=== PATIENT | female | born 1965 | race Caucasian/White ===

== ENCOUNTER 2022-04-22 16:54 | Emergency (ER) | payer MEDICAID, SELFPAY ==
[2022-04-22 20:30] VITALS: BP 165/77; PULSE 77; RESP 18; TEMP 36.6; O2SAT 98; BMI 46.8
--- NOTE | 2022-04-22 23:45 | ED.BACK ---
HPI - Back Pain/Injury General Chief Complaint: Back Pain/Injury Stated Complaint: back pain Time Seen by Provider: 04/22/22 23:45 Source: patient Mode of arrival: ambulatory Limitations: no limitations History of Present Illness HPI Narrative: This is a 56-year-old female no significant medical history presenting to the emergency department with complaints of lower back pain x2 days worsening. Patient tells me initially she started experiencing this back pain after she got pulled while walking a dog she tells me she feels like her back was strained, she immediately started experiencing the pain to her lower back and at times it radiates down her left leg just above the knee. He tells me this is never happened to her before. She rates the pain as severe, 10/10, intermittent in nature, worsened by certain movements. Denies fall, no head strike. Also denies fevers, chills, chest pain, shortness of breath, numbness, urinary/bowel incontinence/retention, weakness, loss of sensation to lower extremities, difficulties with ambulation MD elicited complaint: back pain Pertinent past history: other (Pulled by a dog) Onset (ago): day(s) (2) Timing: intermittent Severity: severe Pain scale (0-10): 10 Similar Symptoms Previously: No Quality: sharp Location: lumbar spine Radiation: left upper leg Exacerbating factors: movement Relieving factors: immobilization Context: other (getting pulled by a dog ) Work related injury: No Related Data Previous Rx's Medication Instructions Recorded acetaminophen 325 mg tablet 650 mg PO Q6H PRN pain #20 tabs 04/23/22 (Tylenol) cyclobenzaprine 10 mg tablet 10 mg PO BEDTIME PRN muscle spasm 04/23/22 #7 tabs lidocaine 5 % topical patch 1 patch topical DAILY PRN pain #15 04/23/22 ea Allergies Allergy/AdvReac Type Severity Reaction Status Date / Time No Known Allergies Allergy Unverified 06/12/20 15:21 [No Known Allergies*] Review of Systems Review of Systems: Constitutional : No Weight loss, No Fever, No Chills, No Fatigue, No Malaise ENT/Mouth : No sore throat, No Rhinorrhea Eyes: No Eye Pain, No Swelling, No Redness Cardiovascular : No Chest Pain, No SOB, No Dyspnea on Exertion, No Orthopnea, No Edema, No Palpitations Respiratory : No Cough, No Sputum, No Wheezing Gastrointestinal : No Nausea, No Vomiting, No Diarrhea, No Constipation, No abdominal Pain, No Hematochezia, No Melena Genitourinary : No Dysuria, No Urinary Frequency, No Hematuria, Musculoskeletal : + joint pain, No Myalgias, No Joint Swelling Skin : No Skin Lesions, No rash Neuro : No Weakness, No Numbness, No Dizziness, No Headache All other systems reviewed and are negative Yes all other systems are reviewed and are negative [facility] Past Medical History Attestation statement: The following information was validated with the patient. Source: old records reviewed and nursing notes reviewed Physical Exam Vital Signs: Vital Signs: Last Vital Signs Temp 97.8 F 04/22/22 20:30 Pulse 77 04/22/22 20:30 Resp 18 04/22/22 20:30 BP 165/77 H 04/22/22 20:30 Pulse Ox 98 04/22/22 20:30 O2 Del Method 04/22/22 20:30 BMI result Body Mass Index 46.8 VSS Appearance: Alert.? Oriented X3.? No acute distress.? Head: Normocephalic, atraumatic, no step-offs or deformities Eyes: Pupils equal, round and reactive to light.? CVS: Normal heart rate and rhythm.? Pulses normal.? Respiratory: No respiratory distress.? Breath sounds normal.? Abdomen: Soft and nontender.? Skin: Skin warm and dry.? Normal skin color.? Normal skin turgor.? Extremities: No lower extremity edema.? No calf ttp. 5/5 strength to bilateral upper and lower extremities. 2+ patellar reflexes equal bilateral. Back: No midline tenderness, no C-spine tenderness, full range of motion, no CVA tenderness bilaterally + pain with forward flexion and extension of back Neuro: Oriented X 3.? No motor deficit.? No sensory deficit. CN 2-12 intact . Ambulating with steady gait. No saddle paresthesias. Course Reevaluation(s) Reevaluation #1: Patient will be given morphine at this time for pain, Lidoderm patch. She will be discharged home with Tylenol, cyclobenzaprine and Lidoderm patches for likely sciatica. Advised to return with new or worsening symptoms, educated her on worrisome signs and symptoms and when to return. Time: 00:07 MDM - Back Pain/Injury MDM Narrative Medical decision making narrative: [id number] 56-year-old female presents with lower back pain status post getting a pulled by her dog while walking it, pain intermittently radiates down left lower extremity just above the knee. Physical examination benign. No pain w/ palpation. However pain with forward flexion and extension of back. Likely sciatic or lumbar strain. Unlikely cauda equina or epidural abscess. Low suspicion for fractures or dislocation. Plan at this time is to give patient Toradol and Lidoderm patches. Medical Records Attestation: I reviewed the patient's medical records. Lab Data Attestation: I reviewed the patient's lab results. Critical Care Time Critical Care Time Critical Care Time: No Discharge Plan Discharge Clinical Impression: Sciatica Patient Disposition: Home, Self-Care Instructions: Sciatica (ED) Additional Instructions: Take your medications as prescribed. If you were prescribed antibiotics today, it is important that you take your medication to their entirety, do not skip any doses, do not finish them early. Follow-up with your primary care provider this week. Return to the emergency department with new or worsening symptoms. Such as fevers, chills, chest pain, shortness of breath, nausea, vomiting, dizziness, headache, vision changes, lethargy In case of emergency call 911 Cyclobenzaprine as a muscle relaxer, can make you tired, please do not drive or operate machinery while taking this. Prescriptions: New cyclobenzaprine 10 mg tablet 10 mg PO BEDTIME PRN (Reason: muscle spasm) Qty: 7 0RF lidocaine 5 % adhesive patch,medicated 1 patch topical DAILY PRN (Reason: pain) Qty: 15 0RF Rx Instructions: leave on most painful area for up to 12 hrs acetaminophen [Tylenol] 325 mg tablet 650 mg PO Q6H PRN (Reason: pain) Qty: 20 0RF Referrals: Physician,None [Primary Care Provider] - 2 days Stand Alone Forms: Work/School Release
[2022-04-23] MEDS: Lidocaine 4 % Patch ADH..PATCH 1 PATCH TRANSDERMA (01:01)
[2022-04-23] MEDS: Morphine Sulfate Immed Release 15 MG TABLET PO (01:01)
== END 2022-04-23 01:08 | disposition home or self-care (01) ==
PROVIDERS: Emergency Provider Internal Medicine
DX: M54.42 Lumbago with sciatica, left side (principal)
CPT/HCPCS: 99283

== ENCOUNTER 2023-07-28 08:26 | Outpatient (REF) | payer MEDICAID, SELFPAY ==
[2023-07-28 12:12] LABS: Anion Gap 12 (12-20); Blood Urea Nitrogen 15 mg/dL (9-16); Calcium 9.8 mg/dL (8.4-10.2); Carbon Dioxide 29 mmol/L (22-29); Chloride 99 mmol/L (96-108); Cholesterol 196 mg/dL (<200); Estimated Glomerular Filt Rate > 60; Glucose Random 189 mg/dL (60-115); HDL Cholesterol 40 mg/dL (>40); LDL Cholesterol Calculated 111 mg/dL (<100); Potassium 3.3 mmol/L (3.3-5.1); Sodium 137 mmol/L (135-145); Triglycerides 228 mg/dL (<150)
== END 2023-07-28 08:27 | disposition home or self-care (01) ==
LOC: HO.HHCL 08:26
PROVIDERS: Visit Provider Family Medicine
DX: I10 Essential (primary) hypertension (principal)
CPT/HCPCS: 36415; 80048; 80061

== ENCOUNTER 2023-08-08 08:17 | Outpatient (REF) | payer MEDICAID, SELFPAY ==
[2023-08-08 11:34] LABS: Estimated Average Glucose 206 mg/dL; Hemoglobin A1c % 8.8 % (<6.0)
== END 2023-08-08 08:18 | disposition home or self-care (01) ==
LOC: HO.HHCL 08:17
PROVIDERS: Visit Provider Family Medicine
DX: R73.09 Other abnormal glucose (principal)
CPT/HCPCS: 36415; 83036

== ENCOUNTER 2023-09-02 10:06 | Outpatient (REF) | payer MEDICAID, SELFPAY ==
[2023-09-02 13:01] LABS: Alanine Aminotransferase 25 U/L (0-31); Albumin Level 4.4 g/dL (3.5-5.0); Alkaline Phosphatase 77 U/L (39-117); Anion Gap 13 (12-20); Aspartate Amino Transferase 21 U/L (5-31); Bilirubin Total 0.8 mg/dL (0.0-1.0); Blood Urea Nitrogen 15 mg/dL (9-16); Calcium 9.7 mg/dL (8.4-10.2); Carbon Dioxide 28 mmol/L (22-29); Chloride 100 mmol/L (96-108); Estimated Glomerular Filt Rate 56; Glucose Random 245 mg/dL (60-115); Potassium 3.3 mmol/L (3.3-5.1); Sodium 138 mmol/L (135-145); Total Protein 8.5 g/dL (6.5-8.0)
[2023-09-03 04:45] LABS: HBS Num1 0.44 mIU/mL (0-7.99); ~HepC Num1 0.13 S/CO (0.00-0.79); ~Hepatitis B Surface Antibody NONREACTIVE (Nonreactive); ~Hepatitis C Antibody Nonreactive (Nonreactive)
[2023-09-05 19:09] LABS: HIV RNA PCR Qn Copies Not Detected Copies/mL; HIV RNA PCR Qn Log Copies Not Detected Log cps/mL
[2023-09-06 06:34] LABS: RPR Rapid Plasma Reagin NON-REACTIVE (NON-REACTIVE)
== END 2023-09-02 10:07 | disposition home or self-care (01) ==
LOC: HO.HHCL 10:06
PROVIDERS: Visit Provider Nurse Practitioner Family
DX: Z00.00 Encounter for general adult medical examination without abnormal findings (principal); Z11.4 Encounter for screening for human immunodeficiency virus [HIV]; E11.9 Type 2 diabetes mellitus without complications; E78.2 Mixed hyperlipidemia
CPT/HCPCS: 36415; 80053; 86592; 86706; 86803; 87536; 87900

== ENCOUNTER 2023-10-19 09:03 | Outpatient (REF) | payer MEDICAID, SELFPAY ==
--- NOTE | ~2023-10-19 | MM_ITS ---
EXAMINATION: MM SCREENING DIGITAL BREAST TOMOSYNTHESIS, BILATERAL CLINICAL INFORMATION: Screening. Asymptomatic. COMPARISON: Mammography: There are no prior mammograms for comparison for at least the last 14 years. This study will function as a new baseline examination. TECHNIQUE: Digital breast tomosynthesis is performed in both the craniocaudal and mediolateral oblique views along with computer-aided detection (CAD). Synthesized 2D images are generated from the tomosynthesis. FINDINGS: The breasts are almost entirely fatty (ACR BI-RADS breast composition Category a). There are no significant masses, abnormal calcifications, or other abnormalities. MM/MM tomosynthesis screening BI IMPRESSION: No mammographic evidence of malignancy. ASSESSMENT: BI-RADS BI-RADS 1 - Negative RECOMMENDATION: Routine annual mammography screening. 1 year F/U This examination should not preclude the clinical evaluation of a suspicious palpable abnormality. This patient's information was entered into a reminder system with a target due date for their next mammogram.
== END 2023-10-19 09:04 | disposition home or self-care (01) ==
LOC: HO.MAMMO 09:03
PROVIDERS: PCP Nurse Practitioner Family; Visit Provider Nurse Practitioner Family
DX: Z12.31 Encounter for screening mammogram for malignant neoplasm of breast (principal)
CPT/HCPCS: 77063; 77067

== ENCOUNTER → 2023-10-19 09:15 | Outpatient (BNV) | payer MEDICAID, SELFPAY | PROVIDERS: PCP Nurse Practitioner Family; Visit Provider Radiology Diagnostic Radiology | DX: Z12.31 Encounter for screening mammogram for malignant neoplasm of breast (principal) | CPT/HCPCS: 77063; 77067 ==

== ENCOUNTER 2023-12-07 | Outpatient (REF) | payer MEDICAID, SELFPAY ==
[2023-12-09 19:53] LABS: C. trachomatis RNA TMA NOT DETECTED (NOT DETECTED); N. gonorrhoeae RNA TMA NOT DETECTED (NOT DETECTED)
[2023-12-17 09:18] LABS: HPV mRNA E6/E7 rflx Not Detected (Not Detected)
== END 2023-12-07 00:01 | disposition home or self-care (01) ==
LOC: HO.HHCLNP
PROVIDERS: Visit Provider Nurse Practitioner Family
DX: Z12.4 Encounter for screening for malignant neoplasm of cervix (principal)
CPT/HCPCS: 36415; 81513; 87491; 87591; 87624; 88142

== ENCOUNTER 2024-01-05 13:09 | Outpatient (REF) | payer MEDICAID, SELFPAY ==
[2024-01-05 16:33] LABS: Alanine Aminotransferase 26 U/L (0-31); Albumin Level 4.4 g/dL (3.5-5.0); Alkaline Phosphatase 65 U/L (39-117); Aspartate Amino Transferase 20 U/L (5-31); Bilirubin Direct 0.4 mg/dL (0.0-0.5); Cholesterol 130 mg/dL (<200); HDL Cholesterol 41 mg/dL (>40); LDL Cholesterol Calculated 57 mg/dL (<100); Total Protein 8.2 g/dL (6.5-8.0); Triglycerides 164 mg/dL (<150)
[2024-01-05 17:27] LABS: Creatinine Urine 99.58 mg/dL; Microalbum/Creatinine Ratio Ur 31.1 ug/mg cr (<30)
== END 2024-01-05 13:10 | disposition home or self-care (01) ==
LOC: HO.CHCLDS 13:09
PROVIDERS: Visit Provider Nurse Practitioner Family
DX: I10 Essential (primary) hypertension (principal); E11.9 Type 2 diabetes mellitus without complications
CPT/HCPCS: 36415; 80061; 80076; 82043; 82570

== ENCOUNTER 2024-02-06 09:17 | Outpatient (AMB) | payer MEDICAID, SELFPAY ==
--- NOTE | 2024-02-06 09:23 | A.OFFVIS_ITS ---
Vital Signs 02/06/24 09:30 Height 5 ft 3 in Weight 222 lb BMI 39.3 BP 111/66 Blood Pressure Location Lt brachial Position Sitting Pulse 75 Intake Visit Reasons: Colonoscopy Screening Intake Note: Patient new consult for 1st pre colonoscopy screening. Patient cc: dizziness come and go. Denies any other GI issues. Clerical Coordinator Required: No Accompanied by: Self / Same As Patient Allergies No Known Allergies [No Known Allergies*] Allergy (Verified 02/06/24 09:22) Medication List - Last Reviewed 02/06/24 by Chela Apodaca amlodipine 10 mg PO DAILY aspirin 81 mg PO DAILY atorvastatin 10 mg PO DAILY bisacodyl (Dulcolax (bisacodyl)) 20 mg (4 x 5 mg) PO ONCE PRN 1 day chlorthalidone 25 mg PO DAILY dulaglutide (Trulicity) 0.75 mg subcut QWEEK insulin glargine (Lantus Solostar U-100 Insulin) 18 units subcut QPM lisinopril 10 mg PO DAILY metformin 500 mg PO DAILY polyethylene glycol 3350 (Miralax) 238 grams PO ONCE PRN 1 day HPI Comments Details: A 58 y/o diabetic female referred index screening colonoscopy Appetite is good, monitoring blood sugars they have been very good range- Trulicity , insulin and metformin Bowels normal Had been dizzy one day last week- after taking pills and not eating- no further sx No N/V/D- abdominal pain-fever or chills PFSH Surgical History Hx of carpal tunnel repair Hx of tubal ligation Social History Household Members: Family Alcohol intake: current Alcohol intake frequency: holidays/special occasions only Patient Tobacco Use Status: Never used Tobacco Use of substances other than those prescribed or required for medical reasons: No Review of Systems Const All systems reviewed & are unremarkable except as noted in HPI and below Eyes Denies blurry vision Card Denies chest pain and Denies dyspnea Resp Denies dyspnea GI Denies no additional complaints Physical Exam Vital Signs: Last Vital Signs Pulse 75 02/06/24 09:30 BP 111/66 02/06/24 09:30 BMI result Body Mass Index 39.3 Const General: cooperative, healthy appearing, comfortable and no acute distress Orientation/consciousness: patient oriented x3 Limitations: no limitations Eyes Sclerae: sclerae normal Resp Effort & Inspection: normal respiratory effort and able to speak in complete sentences Auscultation: clear to auscultation bilaterally Cardio Rate: regular rate Rhythm: regular rhythm Heart sounds: S1 normal heart sound present and S2 normal heart sound present GI Palpation (GI): Soft to palpation and nontender Auscultation: normal bowel sounds Skin General skin exam: no rashes or lesions noted Neuro General: patient oriented x3 Extrem General: Yes full ROM Psych Appearance: grossly normal and well kempt Mental Status: mental status grossly normal Speech and movement: Normal speech and movement present and Clear speech present Affect: normal affect Attitude: cooperative Thought process: Normal thought process present Thought content: Normal thought content present Insight: Good insight present (Psych) Judgement: Good judgement present (Psych) Assessment & Plan Assessment & Plan (1) Encounter for screening colonoscopy: Comment: Index screening-many questions, regard to medications, reviewed medication list x2 Code(s): Z12.11 - Encounter for screening for malignant neoplasm of colon Category: Medical Plan: Disc proced/ rare risks/ need for escort Plan Index screen MG prep Medications to be Held Prior to Surgery (GLP1- Dulaglutide[]STOP ! week before 1/2 dose PM insulin [place] before procedure Metoformin- omit day before- no DM med day before Medications: New bisacodyl (Dulcolax (bisacodyl)) Day before procedure @ 12 noon Take 4 tablets by mouth followed by large glass of water 20 mg (4 x 5 mg) PO ONCE PRN 4 tabs 0RF colonoscopy prep 1 day Z12.11 - Encounter for screening for malignant neoplasm of colon polyethylene glycol 3350 (Miralax) Take as directed by mouth the day before your procedure. 238 grams PO ONCE PRN 238 grams 0RF laxative effect 1 day Patient Instructions: Index screening colonoscopy Discussed procedure, rare risks need for MiraLax Gatorade prep, reviewed literature given Discussed Medications to be Held Prior to Surgery (GLP1- Dulaglutide[]STOP ! week before 1/2 dose PM insulin [place] before procedure Metoformin- omit day before- no DM med day before Coding Level of Care Code New Pt Level 4 (37984) Diagnoses Encounter for screening colonoscopy Z12.11 Time Spent (min) 30
[2024-02-06 09:30] VITALS: BP 111/66; PULSE 75; BMI 39.3
== END 2024-02-06 09:55 | disposition home or self-care (01) ==
PROVIDERS: PCP Nurse Practitioner Family; Visit Provider Physician Assistant
DX: Z12.11 Encounter for screening for malignant neoplasm of colon (principal); Z01.818 Encounter for other preprocedural examination
CPT/HCPCS: 99204

== ENCOUNTER → 2024-02-06 09:17 | Outpatient (BNVA) | payer MEDICAID, SELFPAY | PROVIDERS: PCP Nurse Practitioner Family; Visit Provider Physician Assistant | DX: Z12.11 Encounter for screening for malignant neoplasm of colon (principal) | CPT/HCPCS: 99212 ==

== ENCOUNTER 2024-06-07 14:00 | Outpatient (RCR) | payer MEDICAID, SELFPAY | END 2024-07-25 09:34 | disposition home or self-care (01) | LOC: HO.PT 14:00 | PROVIDERS: PCP Nurse Practitioner Family; Visit Provider Nurse Practitioner Family | DX: M54.9 Dorsalgia, unspecified (principal) | CPT/HCPCS: 97110; 97140; 97162; 97535 ==

== ENCOUNTER 2024-07-05 07:30 | Day surgery (SDC) | payer MEDICAID, SELFPAY ==
[2024-07-03 13:11] VITALS: BMI 39.3
--- NOTE | 2024-07-04 10:10 | P.CONAN_ITS ---
Documented by User: Isabel Azevedo NP 07/04/24 10:11 HPI - Anesthesia Eval Consult details Narrative: 59yo F for Colonoscopy Anesthesia Pre-Procedure Meds Is the patient on any of the following meds?: GLP1/DPP4 PMFSH Active Problems Active Problems: All Active Problems Encounter for screening colonoscopy (Acute) Past Medical History Medical History Diabetes Elevated cholesterol HTN (hypertension) Surgical History Surgical History Hx of carpal tunnel repair Hx of tubal ligation Social History Social History Household Members: Family Household Members Other:: daughter Housing Other:: 2nd floor of 2 family house Are you a primary senior resident care director to a significant other at home: No Do you presently have visiting nurse or other home services: No Alcohol intake: current Alcohol intake frequency: does not drink Patient Tobacco Use Status: Never used Tobacco Use of substances other than those prescribed or required for medical reasons: No Have you been hit, kicked, punched, or otherwise hurt by someone within the past year? If so, by whom?: No Spiritual Healthcare Practices: none Mu-Ism Healthcare Practices: Yazidi Cultural Healthcare Practices: none Are you DNR?: No Advance Directives: No (sister is primary contact) Advance Directives Information Provided: Yes (as abov enoted) Advance Directives on File: No Recently lost weight without trying: No Eating poorly because of decreased appetite: No Nutrition Risks: No Nutritional Risk Patient : No (n/a) FDLMP: n/a Poor oral hygiene: No Meds Allergies Allergy/AdvReac Type Severity Reaction Status Date / Time No Known Allergies Allergy Verified 02/06/24 09:22 [No Known Allergies*] Home Medications ?Medication ?Instructions ?Recorded ?Confirmed ?Last Taken ?Type amlodipine 10 mg tablet 10 mg PO DAILY 02/06/24 07/03/24 07/05/24 History aspirin 81 mg chewable tablet 81 mg PO DAILY 02/06/24 07/03/24 07/02/24 History atorvastatin 10 mg tablet 10 mg PO DAILY 02/06/24 07/03/24 Unknown History chlorthalidone 25 mg tablet 25 mg PO DAILY 02/06/24 07/03/24 Unknown History dulaglutide 0.75 mg/0.5 mL 0.75 mg subcut QWEEK 02/06/24 07/03/24 06/27/24 History subcutaneous pen injector (Trulicity) insulin glargine 100 unit/mL (3 8 unit subcut QPM 02/06/24 07/03/24 Unknown History mL) subcutaneous pen (Lantus Solostar U-100 Insulin) lisinopril 10 mg tablet 10 mg PO DAILY 02/06/24 07/03/24 Unknown History metformin 500 mg tablet 500 mg PO DAILY 02/06/24 07/03/24 Unknown History Exam Height,Weight and Vital Signs: Height 5 ft 3 in Weight 100.698 kg Assessment and Plan Assessment Anesthesia Assessment: Chart Reviewed Documented by User: Florecita Booker MD 07/05/24 08:53 PMFSH Past Medical History Medical History Diabetes Elevated cholesterol HTN (hypertension) Family History Family history of problems with anesthesia: No Surgical History Surgical History Hx of carpal tunnel repair Hx of tubal ligation History of Problems with Anesthesia: No Social History Social History Household Members: Family Household Members Other:: daughter Housing Other:: 2nd floor of 2 family house Are you a primary senior resident care director to a significant other at home: No Do you presently have visiting nurse or other home services: No Alcohol intake: current Alcohol intake frequency: does not drink Patient Tobacco Use Status: Never used Tobacco Use of substances other than those prescribed or required for medical reasons: No Have you been hit, kicked, punched, or otherwise hurt by someone within the past year? If so, by whom?: No Spiritual Healthcare Practices: none [employer] Healthcare Practices: Yazidi Cultural Healthcare Practices: none Are you DNR?: No Advance Directives: No (sister is primary contact) Advance Directives Information Provided: Yes (as abov enoted) Advance Directives on File: No Recently lost weight without trying: No Eating poorly because of decreased appetite: No Nutrition Risks: No Nutritional Risk Patient : No (n/a) FDLMP: n/a Poor oral hygiene: No Meds Allergies Allergy/AdvReac Type Severity Reaction Status Date / Time No Known Allergies Allergy Verified 02/06/24 09:22 [No Known Allergies*] Home Medications ?Medication ?Instructions ?Recorded ?Confirmed ?Last Taken ?Type amlodipine 10 mg tablet 10 mg PO DAILY 02/06/24 07/03/24 07/05/24 History aspirin 81 mg chewable tablet 81 mg PO DAILY 02/06/24 07/03/24 07/02/24 History atorvastatin 10 mg tablet 10 mg PO DAILY 02/06/24 07/03/24 Unknown History chlorthalidone 25 mg tablet 25 mg PO DAILY 02/06/24 07/03/24 Unknown History dulaglutide 0.75 mg/0.5 mL 0.75 mg subcut QWEEK 02/06/24 07/03/24 06/27/24 History subcutaneous pen injector (Trulicity) insulin glargine 100 unit/mL (3 8 unit subcut QPM 02/06/24 07/03/24 Unknown History mL) subcutaneous pen (Lantus Solostar U-100 Insulin) lisinopril 10 mg tablet 10 mg PO DAILY 02/06/24 07/03/24 Unknown History metformin 500 mg tablet 500 mg PO DAILY 02/06/24 07/03/24 Unknown History Exam Airway Mallampati Class: II TM Dist: >3cm Neck ROM: Full Heart: rrr Lungs: cta Assessment and Plan Assessment Anesthesia Assessment: Anesthesia Plan Discussed Final Anesthetic Review Family History of Problems with Anesthesia: No History of Problems with Anesthesia: No NPO: Yes ASA Class: III Final Preanesthetic Review: No Changes in Pt Med Stat, Meds/Allgs Chart Reviewed, Consent Obtained/Reviewed and Anes Risks/Benef Reviewed Patient Risk: Intermediate Procedure Risk: Low Anesthetic Plan Anesthetic Plan: MAC: Disposition: Standard PACU
[2024-07-05 07:43] VITALS: BMI 40.2
[2024-07-05 07:45] VITALS: BP 135/78; PULSE 82; RESP 19; TEMP 36.9; O2SAT 97
[2024-07-05] MEDS: Lactated Ringers 500 ML 20 ML IVCONT (08:11)
--- NOTE | 2024-07-05 08:11 | P.HPSUR_ITS ---
Pre-Procedural Eval Section A - 24 Hr Update-Section A only Date of Service: 07/05/24 Section B - Complete if H&P > 30 days Chief Complaint: Encounter for screening for malignant neoplasm of Relevant Family History (Specify if Yes): No Relevant Social History: None Present Medications: see Short Stay Collaborative assessment Medical History: Significant History (Diabetes Elevated cholesterol HTN (hyper tension)) History of Previous Operations: Relevant previous surgery/procedure and date(s) (Hx of carpal tunnel repair Hx of tubal ligation) Allergies: Allergies Allergy/AdvReac Type Severity Reaction Status Date / Time No Known Allergies Allergy Verified 02/06/24 09:22 [No Known Allergies*] Review of Systems Sugical H&P ROS: Negative: Constitution, Cardiovascular, Respiratory, Neurological, Psychiatric, Hem-Onc, Allergic/Immunologic, Gastrointestinal, Genitourinary, Musculoskeletal, Integumentary, Endocrine and Eyes/Ears/Nose/Throat Exam Surgical H&P Exam: Normal: HEENT, Normal: Heart, Normal: Lungs, Normal: Extremities, Normal: Abdomen, Normal: Skin and Normal: Neurological Plan Diagnosis/Plan: Unchanged I have reviewed the history and physical and performed a pertinent physical examination on my patient. No changes have occurred unless specified. Time Spent With Patient Time: Total time managing care of this patient today ____ minutes.
--- NOTE | 2024-07-05 09:43 | P.OPN-COLO_ITS ---
Colonoscopy Operative Note Operative Note Date of Service: 07/05/24 Narrative: Operative Information Procedure Description: Colonoscopy Indication: screening Anesthesia: MAC COLONOSCOPY Instrument: Olympus variable stiffness pediatric scope 190L Colonoscopy Monitoring: Vital signs and clinical assessment, continuous EKG monitoring, Pulse oximetry, Carbon Dioxide monitoring and blood pressure monitoring were done throughout the procedure. Colon withdrawal time was 11 minutes. Procedure: The patient was placed in the left lateral decubitis position and pre-procedure medications were administered. After a digital rectal examination of the ano-rectum, the video colonoscope was inserted into the rectum and advanced through the colon to the cecum/TI. The colonoscope was slowly withdrawn in a retrograde panoramic fashion and the colon mucosa was carefully examined including a retroflexed view of the rectum. Findings and interventions are described below. Procedure Difficulty: moderate, pressure applied to get to cecum Findings: Terminal Ileum-not intubated due to looping Cecum: 5-7 mm sessile polyp removed with cold snare Ascending Colon: 7-8 mm sessile polyp removed with cold snare Transverse Colon -normal Descending Colon:normal Sigmoid Colon: normal Rectum: Retroflexion with small internal hemorrhoids seen, grade I, 3-4 mm x 2 sessile polyp removed with cold forceps Anorectum - normal Intervention: cold forcep, cold snare Colon preparation: [place] Bowel Preparation Scale Right colon; 2 Transverse colon: 2 Left colon; 2 (0 = Unprepared colon segment with mucosa not seen due to solid stool that cannot be cleared. 1 = Portion of mucosa of the colon segment seen, but other areas of the colon segment not well seen due to staining, residual stool and/or opaque liquid. 2 = Minor amount of residual staining, small fragments of stool and/or opaque liquid, but mucosa of colon segment seen well. 3 = Entire mucosa of colon segment seen well with no residual staining, small fragments of stool or opaque liquid) Impression and Post Procedure Diagnosis: colon polyps internal hemorrhoids Plan: High fiber diet leaflet Avoid straining at stool, epsom salts and sitz bath, anusol supps or cream Repeat Colonoscopy in 5 years if adenomatous polyps, 10 yrs if non adenomatous or earlier if clinically indicated Above findings were reviewed with the patient and relevant handouts were provided if indicated.
[2024-07-05 09:50] VITALS: BP 101/65; PULSE 84; RESP 16; TEMP 36.1; O2SAT 97
[2024-07-05 10:05] VITALS: BP 114/66; PULSE 91; RESP 16; TEMP 36.1; O2SAT 97
== END 2024-07-05 10:50 | disposition home or self-care (01) ==
PROVIDERS: Visit Provider Internal Medicine Gastroenterology
PROC: 0DJD8ZZ Inspection of Lower Intestinal Tract, Via Natural or Artificial Opening Endoscopic (ICD-10-PCS; CPT 45378; principal; 2024-07-05 09:20)
DX: Z12.11 Encounter for screening for malignant neoplasm of colon (principal); K63.5 Polyp of colon; K62.1 Rectal polyp; K64.0 First degree hemorrhoids; I10 Essential (primary) hypertension; E78.00 Pure hypercholesterolemia, unspecified; E11.9 Type 2 diabetes mellitus without complications; Z79.4 Long term (current) use of insulin; Z79.84 Long term (current) use of oral hypoglycemic drugs; Z79.85 Long-term (current) use of injectable non-insulin antidiabetic drugs; Z79.82 Long term (current) use of aspirin; Z79.899 Other long term (current) drug therapy
CPT/HCPCS: 45385; 45380; 88305; J2003; J2704

== ENCOUNTER → 2024-07-05 07:30 | Outpatient (BNV) | payer MEDICAID, SELFPAY | PROVIDERS: Visit Provider Internal Medicine Gastroenterology | DX: Z12.11 Encounter for screening for malignant neoplasm of colon (principal); K63.5 Polyp of colon; K62.1 Rectal polyp; K64.0 First degree hemorrhoids | CPT/HCPCS: 45385 ==

== ENCOUNTER 2024-09-25 08:52 | Outpatient (REF) | payer MEDICAID, SELFPAY ==
[2024-09-25 11:08] LABS: MANUAL DIFF FLAG NO
[2024-09-25 11:21] LABS: Basophils Absolute Auto 0.1 X10*3/uL (0.0-0.2); Basophils Percent Auto 1.1 % (0-2); Eosinophils Absolute Auto 0.1 X10*3/uL (0.0-0.4); Eosinophils Percent Auto 2.4 % (0-4); Hematocrit 32.6 % (37.0-47.0); Imm Gran Abs Auto 0.02 X10*3/uL (0.00-0.03); Imm Gran Pct Auto 0.4 % (0.0-0.4); Lymphocytes Percent Auto 36.2 % (20-40); Mean Corpuscular HGB Conc 33.7 g/dl (31.0-35.0); Mean Corpuscular Hemoglobin 29.7 pg (27.0-33.0); Mean Corpuscular Volume 88.1 fL (80.0-98.0); Mean Platelet Volume 10.3 fL (9.4-12.3); Monocytes Absolute Auto 0.3 X10*3/uL (0.1-1.2); Monocytes Percent Auto 6.3 % (2-11); Neutrophils Absolute Auto 2.9 x10*3/uL (2.0-8.3); Neutrophils Percent Auto 53.6 % (45-73); Platelet Count 255 X10*3/uL (160-400); Red Cell Distribution Width 12.7 % (11.0-16.0); White Blood Count 5.4 X10*3/uL (4.8-10.8)
[2024-09-25 11:50] LABS: Alanine Aminotransferase 23 U/L (0-31); Albumin Level 4.4 g/dL (3.5-5.0); Alkaline Phosphatase 60 U/L (39-117); Anion Gap 12 (12-20); Aspartate Amino Transferase 25 U/L (5-31); Bilirubin Direct 0.3 mg/dL (0.0-0.5); Bilirubin Total 0.7 mg/dL (0.0-1.0); Blood Urea Nitrogen 22 mg/dL (9-16); Calcium 9.2 mg/dL (8.4-10.2); Carbon Dioxide 26 mmol/L (22-29); Chloride 104 mmol/L (96-108); Cholesterol 117 mg/dL (<200); Estimated Glomerular Filt Rate 54; Glucose Random 121 mg/dL (60-115); HDL Cholesterol 42 mg/dL (>40); LDL Cholesterol Calculated 57 mg/dL (<100); Potassium 4.2 mmol/L (3.3-5.1); Sodium 138 mmol/L (135-145); Total Protein 8.1 g/dL (6.5-8.0); Triglycerides 92 mg/dL (<150)
[2024-09-25 12:13] LABS: Folate 8.6 ng/mL (> or = 4.0); Vitamin B12 255 pg/mL (200-900)
[2024-09-25 12:41] LABS: HIV AB/AG Nonreactive (Nonreactive); HIV Num 1 0.05 S/CO (0.00-0.99)
== END 2024-09-25 08:53 | disposition home or self-care (01) ==
LOC: HO.HHCL 08:52
PROVIDERS: Nurse Practitioner Family; Visit Provider Nurse Practitioner Family
DX: Z00.00 Encounter for general adult medical examination without abnormal findings (principal); E11.9 Type 2 diabetes mellitus without complications; Z79.4 Long term (current) use of insulin
CPT/HCPCS: 36415; 80053; 80061; 80076; 82248; 82607; 82746; 85025; 87389

== ENCOUNTER 2024-10-09 10:21 | Outpatient (REF) | payer MEDICAID, SELFPAY ==
--- NOTE | ~2024-10-09 | XR_ITS ---
EXAMINATION: XR CERVICAL SPINE CLINICAL INFORMATION: right arm radicular pain ,no trauma COMPARISON: None available. TECHNIQUE: 6 views of the cervical spine, inclusive of flexion and extension views, were obtained. FINDINGS: Craniocervical junction is intact. Calcifications in the anterior intervertebral disc from C4-5 to C6-7 levels. Anterior marginal osteophyte formation C4-5, C5-6 and C6-7 levels. Right neuroforamina narrowing on a degenerative basis at C5-6 and C6-7 levels. There is normal alignment. No lytic or blastic lesions. Upper respiratory airways patent. XR/XR cervical spine 4V IMPRESSION: Multilevel cervical spondylosis C4 C7 without acute fracture or listhesis resulting in right neuroforamina and stenosis/narrowing at C5-6. Electronically signed by: Ricki Pérez MD 10/09/2024 12:47 PM [email or web address]
== END 2024-10-09 10:22 | disposition home or self-care (01) ==
LOC: HO.HHCX 10:21
PROVIDERS: Visit Provider Nurse Practitioner Family
DX: M54.12 Radiculopathy, cervical region (principal)
CPT/HCPCS: 72050

== ENCOUNTER → 2024-10-09 10:22 | Outpatient (BNV) | payer MEDICAID, SELFPAY | PROVIDERS: Visit Provider Radiology Diagnostic Radiology | DX: M54.12 Radiculopathy, cervical region (principal) | CPT/HCPCS: 72050 ==

== ENCOUNTER 2024-10-24 08:45 | Outpatient (REF) | payer MEDICAID, SELFPAY ==
--- OUTSIDE RECORDS SUMMARY | 2024-10-24 09:30 | XMS_ITS | Encounter Summary ---
Author Organization [employer] Address [address] [place] [address] [address] [place] [address] Care Team Providers Care Fur Nailer Name Role Phone Caridad Sheffield EXTRACTION MACHINE OPERATOR Primary Care Provider [phone] Noelle Swann NP Primary Care Provider [phone] Ata Patino PharmD Unavailable [phone] Encounter Details Date Type Department Care Team (Late st Contact Info) Description 10/26/2023 Orders Only [facility] [address] [place] [address] Caridad Sheffield FNP [address] [place] [address] Mixed hyperlipidemia (Primary Dx); Diabetes mellitus, new onset (CMS/HCC) Social History Tobacco Use Types Packs/Day Years Used Date Smoking Tobacco: Never Passive Smoke Exposure: Never Smokeless Tobacco: Never Depression Answer Date Recorded Patient Health Questionnaire-2 Score 0 09/02/2023 Comments Unknown Sex and Gender Information Value Date Recorded Sex Assigned at Female 07/14/2023 10:49 AM EDT Legal Sex Female 10:35 AM EDT Gender Identity Female 07/14/2023 10:49 AM EDT Sexual Orientation Straight 07/14/2023 10 :49 AM EDT documented as of this encounter Plan of Treatment Upcoming Encounters Date Type Department Care Team (Late st Contact Info) Description 11/19/2024 1:00 PM EST Medication Management [facility] MEDICINE [address] [place] [address] Ata Patino, PharmD [address] [place] [address] documented as of this encounter Goals Goal Patient Goal Type Associated Problems Recent Progress Patient-Stated? Author Blood Pressure < 140/90 Blood Pressure 118/62(2023 9:04 AM EST) No Jg Olivia Hemoglobin A1c < 7 Result Component 6.9( 11:38 AM EST) No Jg Olivia documented as of this encounter Procedures Procedure Name Priority Date/Time Associated Diagnosis Comments VITAMIN B12/FOLATE, SERUM PANEL Routine 09/25/2024 8:56 AM EST Diabetes mellitus, new onset (CMS/HCC) documented in this encounter Results * Vitamin B12/Folate, Serum Panel (09/25/2024 8:56 AM EST) Vitamin B12 255 200 - 900 pg/mL [facility] Comment:NORMAL 200-900 PG/ML INDETERMINATE 160-199 PG/ML DEFICIENT < 160 PG/ML Folate 8.6 > or = 4.0 ng/mL [facility] Comment:Reference Values:> o r = 4.0 ng/mL< 4.0 ng/mL suggests folate deficiency Methotrexate, aminopterin and folinic acid(leucovorin) are chemotherapeutic agents whose molecularstructures are similar to folate; therefore, the Architectfolate assay cannot be used for patients using these drugs. 09/25/2024 8:56 AM EST 09/25/2024 11:02 AM EST us Caridad LEE LAB BLOOD ORDERABLES Final Resu lt [facility] [address] [place] [phone] documented in this encounter Visit Diagnoses Diagnosis Mixed hyperlipidemia- Primary Diabetes mellitus, new onset (CMS/HCC) documented in this encounter Care Teams Fur Nailer Relationship Specialty Start Date End Date Caridad Sheffield FNP [address] [place] [address] PCP - General Family Medicine 09/02/23 05/28/24 Noelle Swann NP [address] [place] [address] PCP - General Family Medicine 05/29/24 Ata Patino, TrudyD [address] [place] [address] Pharmacist Internal Medicine 06/17/24 documented as of this encounter
--- OUTSIDE RECORDS SUMMARY | 2024-10-24 09:30 | XMS_ITS | Encounter Summary ---
Author Organization [employer] Address [address] [facility] 7[address] [place] [address] Care Team Providers Care Telemetry Technician Name Role Phone Noelle Swann MICHELL Primary Care Provider [phone] Ata Patino PharmD Unavailable [phone] Reason for Visit * Reason Comments Med Refill Encounter Details Date Type Department Care Team ([facility] st Contact Info) Description 10/24/2024 Refill [facility] MEDICINE [address] [place] [address] Caridad Sheffield FNP [address] [place] [address] Social History Tobacco Use Types Packs/Day Years Used Date Smoking Tobacco: Never Passive Smoke Exposure: Never Smokeless Tobacco: Never Depression Answer Date Recorded Patient Health Questionnaire-9 Score 3 12/07/2023 Patient Health Questionnaire-9 Score 3 12/07/2023 Last PHQ-9: Questionnaire Data Not on file 0 12/07/2023 Housing Stability Answer Date Recorded What is your housing situation today? I do not have housing (Staying with others, in a hotel, in a fdc, living outside on the street, on a beach, in a car, or in a park 11/04/[address] you li ve. Do you have problems with any of the following? None of the above 11/04/2023 Food Insecurity Answer Date Recorded Within the past 12 months, y ou worried that your food would run out before you got money to buy more: Sometimes True 2023 Within the past 12 months,th e food you bought just didn't last and you didn't have enough money to get more: Sometimes True 11/04/2023 Transportation Answer Date Recorded In the past 12 months, has l ack of transportation kept you from medical appts, meetings, work or from getting things needed for daily living? No 11/04/2023 Utilities Answer Date Recorded In the past 12 months, has t he electric, gas, oil or water company threatened to shut off services in your home? No 11/04/2023 Depression Answer Date Recorded Patient Health Questionnaire-2 Score 1 12/07/2023 Internet Access Answer Date Recorded Internet Access Q1 Yes 09/06/2024 Internet Access Q2 Not on file 09/06/2024 Comments Unknown Sex and Gender Information Value [...] Description 11/19/2024 1:00 PM EST Medication Management [facility] MEDICINE [address] [place] [id number] Ata Patino, PharmD [address] [place] [phone] documented as of this encounter Goals Goal Patient Goal Type Associated Problems Recent Progress Patient-Stated? Author Blood Pressure < 140/90 Blood Pressure 118/62(2023 9:04 AM EST) No Jg Olivia Hemoglobin A1c < 7 Result Component 6.9( 11:38 AM EST) No Jg Olivia documented as of this encounter Visit Diagnoses Not on filedocumented in this encounter Additional Health Concerns Assessment Noted Time PHQ-9 Depression Total Score: 3 12/07/19 24 4:23 PM EDT documented as of this encounter Care Teams Telemetry Technician Relationship Specialty Start Date End Date Noelle Swann NP [address] [place] [phone] PCP - General Family Medicine 05/29/24 Ata Patino, TrudyD [address] [place] [phone] Pharmacist Internal Medicine 06/17/24 documented as of this encounter
--- OUTSIDE RECORDS SUMMARY | 2024-10-24 09:30 | XMS_ITS | Encounter Summary ---
Author Organization [employer] Address [address] [facility] [address] [place] [address] Care Team Providers Care Counselor Dormitory Name Role Phone Noelle Swann NP Primary Care Provider Ata Patino PharmD Unavailable [phone] Encounter Details Date Type Department Care Team ([facility] st Contact Info) Description 09/24/2024 Telephone [facility] MEDICINE [address] [place] [address] Noelle Swann NP [address] [place] [address] Social History Tobacco Use Types Packs/Day Years [...] with others, in a hotel, in a correction, living outside on the street, on a [...] AM EDT documented as of this encounter Miscellaneous Notes * Telephone Encounter - [facility] Allison - 09/24/2024 8:53 AM EST Pharmacy [facility] attempted outreach call on 09/24/24 for CDTM - Diabetes appointment; however, unable to reach patient. LVM for patient to contact [facility] Allison at [phone]. documented in this encounter Plan of Treatment Upcoming Encounters Date Type Department Care Team (Late st Contact Info) Description 11/19/2024 1:00 PM EST Medication Management [facility] MEDICINE [address] [place] [address] Ata Patino, PharmD [address] [place] [address] documented as of this encounter Goals Goal Patient Goal Type Associated Problems Recent Progress Patient-Stated? Author Blood Pressure < 140/90 Blood Pressure 118/62(2023 9:04 AM EST) Jg Ash Hemoglobin A1c < 7 Result Component 6.9( 11:38 AM EST) No Jg Olivia documented as of this encounter Visit Diagnoses Not on filedocumented in this encounter Additional Health Concerns Assessment Noted Time PHQ-9 Depression Total Score: 3 12/07/19 4:23 PM EDT documented as of this encounter Care Teams Counselor Dormitory Relationship Specialty Start Date End Date Noelle Swann NP [address] [place] [address] PCP - General Family Medicine 05/29/24 Ata Patino PharmD [address] [place] [address] Pharmacist Internal Medicine 06/17/24 documented as of this encounter
--- OUTSIDE RECORDS SUMMARY | 2024-10-24 09:30 | XMS_ITS | Clinical Summary ---
Author Organization [employer] Address [address] [facility] [address] [address] [place] [address] Care Team Providers Care Software Implementation Specialist Name Role Phone Noelle Swann MICHELL Primary Care Provider [phone] Ata Patino PharmD Unavailable [phone] Allergies Active Allergy Reactions Criticality Noted Date Comments Penicillins Angioedema 07/14/2023 Medications Blood Glucose Monitoring Suppl (Crescendo BioscienceStyle Dundas Lite) w/Device kitIndications:D iabetes mellitus, new onset (CMS/HCC) Use to test blood sugar bid dx dm 1 kit Active glucose blood (FREESTYLE LITE) test stripIndications :Diabetes mellitus, new onset (CMS/HCC) Use bid. Dx diabetes 60 each Active Blood Pressure Monitor kitIndications:E ssential hypertension 1 kit 2 times daily. 1 kit 023 Active pen needle 33G x 4 mm misc Use as instructed 100 each 12 024 2024 Active chlorthalidone (Hygroton) 25 MG tabletIndication s:Essential hypertension Take 1 tablet (25 mg) by mouth in the morning. 90 tablet 3 024 2024 Active cetirizine (ZyrTEC) 10 MG tablet Take 1 tablet (10 mg) by mouth in the morning. 90 tablet 3 024 2024 Active Continuous Blood Gluc Sensor (FreeStyle Valentine 2 Sensor) misc Use as directed to monitor glucose ever 8 hours. Replace sensor every 14 days. 2 each 11 Active Continuous Blood Gluc Cell Cleaner (FreeStyle Valentine 2 [place]) device USE DIRECTED Active aspirin 81 MG chewable tablet Chew 1 tablet (81 mg) in the morning. 30 tablet 11 024 2024 Active amLODIPine (Norvasc) 10 MG tablet Take 1 tablet (10 mg) by mouth in the morning. 30 tablet 024 2024 Active lisinopril (Prinivil) 10 MG tablet Take 1 tablet (10 mg) by mouth in the morning. 30 tablet 11 024 2024 Active glucose 4 g chewable tablet Chew 4 tablets (16 g) if needed for low blood sugar. 50 tablet 12 024 2024 Active insulin glargine (Lantus SoloStar) 100 UNIT/ML penIndications:D iabetes mellitus, new onset (CMS/HCC) Inject 6 units under the skin once daily 15 mL 3 Active metFORMIN XR (Glucophage-XR) 500 MG 24 hr tabletIndication s:Type 2 diabetes mellitus without complications (CMS/HCC) TAKE 1 TABLET BY MOUTH EVERY MORNING DO NOT BREAK, CRUSH, DISSOLVE OR CHEW 90 tablet 3 Active TRUEplus Lancets 33G miscIndications: Diabetes mellitus, new onset (CMS/HCC) USE DIRECTED TO TEST BLOOD SUGAR TWICE DAILY 100 each Active Alcohol Swabs (Alcohol Prep) 70 % padsIndications: Diabetes mellitus, new onset (CMS/HCC) USE DIRECTED ON SKIN TWICE DAILY 100 each 11 Active atorvastatin (Lipitor) 10 MG tablet TAKE 1 TABLET BY MOUTH EVERY MORNING 90 tablet 3 Active empagliflozin (Jardiance) 10 MG Take 1 tablet (10 mg) by mouth Once per day. 30 tablet 024 2024 Active Trulicity 1.5 MG/0.5ML solution auto-injectorInd ications:Diabete s mellitus, new onset (CMS/HCC) INJECT ONE PEN (=1.5MG) SUBCUTANEOUSLY ONCE A WEEK DIRECTED 2 mL 2 Active dulaglutide (Trulicity) 1.5 MG/0.5ML solution pen-injectorIndi cations:Diabetes mellitus, new onset (CMS/HCC) Inject 1.5 mg subcutaneously under the skin once a week as directed 2 mL 2 024 2024 Discontinued Active Problems Problem Noted Date Diagnosed Date Diabetes mellitus type 2, insulin dependent 08/26 Assessment & Plan (09/23/2024 5:13 PM EST): Start jardiance 10 mg. Metabolic labs ordered, Continue with cgtm collaboration, Excellent glucose control, Upper respiratory infection 07/14/2023 Assessment & Plan (07/14/2023 11:50 PM EDT): Likey viral resp infection, possible RSV w recent exposure at work -hydration -alarm signs and symptoms -rest at home-gave letter for work for 72 hours -supportive tx, tylenol prn,cough syrup med,cetirizine Hypertension 07/14/2023 Assessment & Plan (09/23/2024 5:13 PM EST): At goal today Assessment & Plan (07/14/2023 11:50 PM EDT): Newly dxed w HTN today elevated BP here ,states has a BP machine at home and all readings are elevated >150 to 160s /90 all the time -start today amlodipine 5 mg daily -diet changes advised,weight loss -F here w me in 1 week to monitor BP until starts care w PCP Encounters Date Type Department Care Team Description 10/24/2024 Refill [facility] [address] [place] [address] Caridad Sheffield FNP 10/04/2024 Telephone [facility] [address] [place] [address] Sommer Dent MA recall 09/28/2024 Refill [facility] [address] [place] [address] Ata Patino, Ayah Diabetes mellitus, new onset (CMS/HCC) 09/24/2024 Telephone [facility] [address] [place] [address] Noelle Swann NP 09/14/2024 9:00 AM EST Office Visit [facility] [address] [place] [address] Noelle Swann NP Diabetes mellitus type 2, insulin dependent (CMS/HCC) (Primary Dx); Routine adult health maintenance; Cervical radiculopathy; Primary hypertension 09/13/2024 Travel 09/06/2024 Patient Outreach [facility] [address] [place] [address] Noelle Swann NP Pre-visit Planning (SDOH screening was completed on 11/04/2023) 09/03/2024 Refill [facility] [address] [place], [place] [phone] Caridad Sheffield FNP 08/28/2024 Refill [facility] [address] [place], [place] [phone] Ruddy Franco MD Diabetes mellitus, new onset (CMS/HCC) 07/29/2024 Refill [facility] [address] [place], [place] [phone] Caridad Sheffield FNP Type 2 diabetes mellitus without complications ([facility]/HCC) from Last 3 Months Immunizations Name Administration Dates Next Due Influenza injectable quadrivalent preservative f ree 09/02/2023 Pneumococcal Conjugate PCV 20 10/26/2023 Zoster, Recombinant 01/16/2024,10/26/2023 Family History Medical History Relation Name Comments Heart disease Father Relation Name Status Comments Father Social History Tobacco Use Types Packs/Day Years Used Date Smoking Tobacco: Never Passive Smoke Exposure: Never Smokeless Tobacco: Never Tobacco Cessation:Counseling Given: Not Answered Depression Answer Date Recorded Patient Health Questionnaire-9 Score 3 12/07/2023 Patient Health Questionnaire-9 Score 3 12/07/2023 Last PHQ-9: Questionnaire Data Not on file 0 12/07/2023 Housing Stability Answer Date Recorded What is your housing situation today? I do not have housing (Staying with others, in a hotel, in a penitentiary, living outside on the street, on a [...] Orientation Straight 07/14/2023 10 :49 AM EDT Last Filed Vital Signs Vital Sign Reading Time Taken Comments Blood Pressure 118/62 09/14/2024 9:04 AM EST Pulse 96 09/14/2024 9:04 AM EST Temperature 36.1 ??C (97 ??F) 09/14/2024 9:04 AM EST Respiratory Rate 20 09/14/2024 9:04 AM EST Oxygen Saturation 98% 03/16/2024 11:01 AM EDT Inhaled Oxygen Concentration - - Weight 105 kg (231 lb 9.6 oz) 09/14/2024 9:04 AM EST Height 161.3 cm (5' 3.5 ) 09/14/2024 9:04 AM EST Body Mass Index 40.38 09/14/2024 9:04 AM EST Plan of Treatment Upcoming Encounters Date Type Department Care Team (Late st Contact Info) Description 11/19/2024 1:00 PM EST Medication Management [facility] [address] [place] [address] Ata Patino, PharmD [address] [place] [address] Health Maintenance Due Date Last Done Comments CT Colonography 1965 Colonoscopy 1965 Colorectal Cancer Screening 1965 FIT DNA/Cologuard 1965 FIT 1965 FOBT 1965 Sigmoidoscopy 1965 Diabetes: Foot Exam 1975 DTaP/Tdap/Td Vaccines (1 - Tdap) 1984 Hepatitis B Vaccines (1 of 3 - 19+ 3-dose series) 1984 COVID-19 Vaccine ( season) 2024 12/31/2020 Influenza Vaccine (#1) 2024 09/02/2023 SDOH Screening 11/04/2024 11/04/2023 Depression Screening 12/06/2024 12/07/2023, 12/07/19 Diabetes: Urine Protein Screening 01/04/2025 01/05/2024 Eye Exam 03/08/2025 03/08/2024, 02/24, 03/08/2024, Additional history exists Diabetes: Hemoglobin A1C 03/14/2025 024, 06/11/2024, 03/16/2024, Additional history exists Alcohol/Substance Use Screening 09/14/2025 09/14/2024 Tobacco Screening 09/14/2025 09/14/2024 Lipid Panel 09/25/2025 09/25/2024, 12/25, 07/28/2023 Mammogram 10/19/2025 10/19/2023 Pap Smear 12/06/2026 12/07/2023 Cervical Cancer Screening 12/06/2028 HPV/Cotest 12/06/2028 12/07/2023 RSV Patients and Patients Aged 60 years or older (1 - 1-dose 75+ series) 2040 Hepatitis C Screening Completed 09/02/2023 Pneumococcal Vaccine: Pediatrics (0 to 5 Years) and At-Risk Patients (6 to 49) Years) Completed 10/26/2023 Zoster Vaccines Completed 01/16/2024, 10/26/2023 HIV Screening Completed 09/25/2024 HIB Vaccines Aged Out No longer eligi ble based on patient's age to complete this topic HPV Vaccines Aged Out No longer eligi ble based on patient's age to complete this topic Hepatitis A Vaccines Aged Out No long er eligible based on patient's age to complete this topic IPV Vaccines Aged Out No longer eligi ble based on patient's age to complete this topic Meningococcal Vaccine Aged Out No fayb bennett eligible based on patient's age to complete this topic RSV under 20 months Aged Out No longe r eligible based on patient's age to complete this topic Rotavirus Vaccines Aged Out No longer eligible based on patient's age to complete this topic Goals Goal Patient Goal Type Associated Problems Recent Progress Patient-Stated? Author Blood Pressure < 140/90 Blood Pressure 118/62(2023 9:04 AM EST) No Jg Olivia Hemoglobin A1c < 7 Result Component 6.9( 11:38 AM EST) No Jg Olivia Procedures Procedure Name Priority Date/Time Associated Diagnosis Comments XR CERVICAL SPINE 4V Routine 10/09/2024 10:22 AM EST Cervical radiculopathy CBC WITH AUTO DIFFERENTIAL Routine 09/25/2024 8:56 AM EST Routine adult health maintenance HIV 1/2 ANTIGEN/ANTIBODY, FOURTH GENERATION W/RFL Routine 09/25/2024 8:56 AM EST Routine adult health maintenance LIPID PANEL, STANDARD Routine 09/25/2024 8:56 AM EST Diabetes mellitus type 2, insulin dependent (CMS/HCC) COMPREHENSIVE METABOLIC PANEL Routine 09/25/2024 8:56 AM EST Diabetes mellitus type 2, insulin dependent (CMS/HCC) HEPATIC FUNCTION PANEL Routine 09/25/2024 8:56 AM EST Diabetes mellitus, new onset (CMS/HCC) VITAMIN B12/FOLATE, SERUM PANEL Routine 09/25/2024 8:56 AM EST Diabetes mellitus, new onset (CMS/HCC) POCT GLUCOSE Routine 09/14/2024 9:11 AM EST Diabetes mellitus type 2, insulin dependent (CMS/HCC) POCT GLYCATED HEMOGLOBIN, TOTAL Routine 09/13/2024 11:38 AM EST Diabetes mellitus type 2, insulin dependent (CMS/HCC) ALBUMIN, RANDOM URINE W/CREATININE Routine 01/05/2024 1:20 PM EDT Diabetes mellitus, new onset (CMS/HCC) HPV MRNA E6/E7 REFLEX TO HPV 16, 18/45 Routine 12/07/2023 4:17 PM EDT PAP SMEAR Routine 12/07/2023 4:17 PM EDT BI MAMMOGRAM SCREENING TOMOSYNTHESIS BILATERAL Routine 10/19/2023 9:25 AM EST HEPATITIS C AB W/REFL TO HCV RNA, QN, PCR Routine 09/02/2023 10:09 AM EST Routine adult health maintenance from Last 3 Months or Most Recently Relevant to Health Maintenance Results * XR CERVICAL SPINE 4V (10/09/2024 10:22 AM EST) Anatomical Region Laterality Modality Abdomen Radiographic Camila ging 10/09/2024 10:2 2 AM EST Narrative 10/09/2024 12:50 PM EST ?[facility] ?[address] ?[place] [address] ?XRay Report ? Signed ? Patient: Landin,Glysette ?MR#: [id number] ? : 1965 ?Acct:[id number] ? Age/Sex: 59 / F ?ADM Date: 10/09/ ? Loc: HO.HHCX ? Attending : Noelle Swann PROPERTY ASSISTANT ? Ordering Physician: Noelle Swann PROPERTY ASSISTANT ?? Date of Service: 10/09/24 ?? Procedure(s): XR cervical spine 4V ?? Accession Number(s): [id number] ? cc: Noelle Swann PROPERTY ASSISTANT ? EXAMINATION: ?? XR CERVICAL SPINE ? CLINICAL INFORMATION: ?? right arm radicular pain ,no trauma ? COMPARISON: ?? None available. ? TECHNIQUE: ?? 6 views of the cervical spine, inclusive of flexion and extension ?? views, were obtained. ? FINDINGS: ?? Craniocervical junction is intact. ?? Calcifications in the anterior intervertebral disc from C4-5 to C6-7 ?? levels. Anterior marginal osteophyte formation C4-5, C5-6 and C6-7 ?? levels. ?? Right neuroforamina narrowing on a degenerative basis at C5-6 and C6-7 ?? levels. ? There is normal alignment. ?? No lytic or blastic lesions. ?? Upper respiratory airways patent. ? XR/XR cervical spine 4V ?? IMPRESSION: ?? Multilevel cervical spondylosis C4 C7 without acute fracture or ?? listhesis resulting in right neuroforamina and stenosis/narrowing at ?? C5-6. ? Electronically signed by: ??Ricki Pérez MD ??10/09/2024 12:47 PM ?? EST RP ? Dictated By: ?Ricki Robertson MD ? Signed By: ?<Electronically signed by Ricki Dean MD in OV> ? 10/09/24 1247 ? DD/ 1022 ? TD/TT: 10/09/24 1100 ? Plastics Supervisor: ? Procedure Note Donveroter, Image - 10/09/[address] [address] XRay Report Signed Patient: Kristyn Landin#: [id number] : 1965Acct:[id number] Age/Sex: 59 / FADM Date: 10/09/24 Loc: .HHCX Attending Dr: Noelle Swann PROPERTY ASSISTANT Ordering Physician: Noelle Swann NP Date of Service: 10/09/24 Procedure(s): XR cervical spine 4V Accession Number(s): [id number] cc: Noelle Swann PROPERTY ASSISTANT EXAMINATION: XR CERVICAL SPINE CLINICAL INFORMATION: right arm radicular pain ,no trauma COMPARISON: None available. TECHNIQUE: 6 views of the cervical spine, inclusive of flexion and extension views, were obtained. FINDINGS: Craniocervical junction is intact. Calcifications in the anterior intervertebral disc from C4-5 to C6-7 levels. Anterior marginal osteophyte formation C4-5, C5-6 and C6-7 levels. Right neuroforamina narrowing on a degenerative basis at C5-6 and C6-7 levels. There is normal alignment. No lytic or blastic lesions. Upper respiratory airways patent. XR/XR cervical spine 4V IMPRESSION: Multilevel cervical spondylosis C4 C7 without acute fracture or listhesis resulting in right neuroforamina and stenosis/narrowing at C5-6. Electronically signed by: Ricki Pérez MD 10/09/2024 12:47 PM EST RP Dictated By: Ricki Robertson MD Signed By: <Electronically signed by Ricki Dean MDin OV> 10/09/24 1247 DD/ 1022 TD/TT: 10/09/24 1100 Plastics Supervisor: us Noelle Swann PROPERTY ASSISTANT IMG XR PROCEDURES Final Result * Vitamin B12/Folate, Serum Panel (09/25/2024 8:56 AM EST) Vitamin B12 255 200 - 900 pg/mL [facility] Comment:NORMAL 200-900 PG/ML INDETERMINATE 160-199 PG/ML DEFICIENT < 160 PG/ML Folate 8.6 > or = 4.0 ng/mL [facility] Comment:Reference Values:> o r = 4.0 ng/mL< 4.0 ng/mL suggests folate deficiency Methotrexate, aminopterin and folinic acid(leucovorin) are chemotherapeutic agents whose molecularstructures are similar to folate; therefore, the Architectfolate assay cannot be used for patients using these drugs. 09/25/2024 8:56 AM EST 09/25/2024 11:02 AM EST us Caridad Sheffield TRAINING GENERALIST LAB BLOOD ORDERABLES Final Resu lt [facility] [address] [place] [phone] * (ABNORMAL) CBC auto differential (09/25/2024 8:56 AM EST) White Blood Count 5.4 4.8 - 10.8 X10*3/uL [facility] Red Blood Count 3.70(L) 4.20 - 5.50 X10*6/uL [facility] Hemoglobin 11.0(L) 12.0 - 16.0 g/dl [facility] Hematocrit 32.6(L) 37.0 - 47.0 % [facility] Mean Corpuscular Volume 88.1 80.0 - 98.0 fL [facility] Mean Corpuscular Hemoglobin 29.7 27.0 - 33.0 pg [facility] Mean Corpuscular HGB Conc 33.7 31.0 - 35.0 g/dl [facility] Red Cell Distribution Width 12.7 11.0 - 16.0 % [facility] Platelet Count 255 160 - 400 X10*3/uL [facility] Mean Platelet Volume 10.3 9.4 - 12.3 fL [facility] Neutrophils Percent Auto 53.6 45 - 73 % [facility] Imm Gran Pct Auto 0.4 0.0 - 0.4 % [facility] Lymphocytes Percent Auto 36.2 20 - 40 % [facility] Monocytes Percent Auto 6.3 2 - 11 % [facility] Eosinophils Percent Auto 2.4 0 - 4 % [facility] Basophils Percent Auto 1.1 0 - 2 % [facility] NRBC Pct Auto 0.0 0.0 - 0.2 /100WBC [facility] Neutrophils Absolute Auto 2.9 2.0 - 8.3 x10*3/uL [facility] Imm Gran Abs Auto 0.02 0.00 - 0.03 X10*3/uL [facility] Lymphocytes Absolute Auto 2.0 1.2 - 4.9 X10*3/uL [facility] Monocytes Absolute Auto 0.3 0.1 - 1.2 X10*3/uL [facility] Eosinophils Absolute Auto 0.1 0.0 - 0.4 X10*3/uL [facility] Basophils Absolute Auto 0.1 0.0 - 0.2 X10*3/uL [facility] NRBC Abs Auto 0.000 0.0 - 0.012 X10*3/uL [facility] Blood Venous blood specimen / Unknown 09/25/2024 8:56 AM EST 09/25/2024 11:02 AM EST Noelle Swann NP LAB BLOOD ORDERABLES Final Resul t Performing Organization Address [facility] Co de Phone Number [facility] [address] [place] [address] [phone] * HIV-1/2 Antigen and Antibodies, Fourth Generation, with Reflexes (09/25/2024 8:56 AM EST) HIV AB/AG Nonreactive Nonreactive [facility] Comment:HIV-1 p24 Ag and/or HIV-1/HIV-2 Ab not detected.A test result that is nonreactive does not exclude thepossibility of exposure to or infection with HIV-1 and/orHIV-2. Nonreactive results in this assay for individualswith prior exposure to HIV-1 and/or HIV-2 may be due toantigen and antibody levels that are below the limit ofdetection of this assay.The Five Delta HIV Ag/Ab Combo assay result andsupplemental assay results should be interpreted inconjunction with the patient's clinical presentation,history and other laboratory results. If the results areinconsistent with clinical evidence, additional testing issuggested to confirm the result. Blood Venous blood specimen / Unknown 09/25/2024 8:56 AM EST 09/25/2024 11:02 AM EST us Noelle Swann NP LAB BLOOD ORDERABLES Final Resul t Performing Organization Address City/[facility]/ZIP Co de Phone Number [facility] [address] [place] [address] [phone] * Hepatic Function Panel (09/25/2024 8:56 AM EST) Bilirubin, Direct 0.3 0.0 - 0.5 mg/dL [facility] Blood Venous blood specimen / Unknown 09/25/2024 8:56 AM EST 09/25/2024 11:02 AM EST us Caridad Lindakriss TRAINING GENERALIST LAB BLOOD ORDERABLES Final Resu lt Performing Organization Address City/[facility]/ZIP Co de Phone Number [facility] [address] [place] [phone] * Lipid Panel, Standard (09/25/2024 8:56 AM EST) Triglycerides 92 <150 mg/dL [facility] Comment:Desirable Triglyceri de: less than 150 mg/dLBorderline High Triglyceride 150-199 mg/dLHigh Triglyceride: 200-499 mg/dLVery High Triglyceride: greater than or equal to 5OO mg/dL Cholesterol 117 <200 mg/dL [facility] Comment:Desirable Cholestero l: less than 200 mg/dLBorderline High Cholesterol: 200-239 mg/dLHigh Cholesterol: greater than 239 mg/dL LDL Cholesterol Calculated 57 <100 mg/dL [facility] Comment:Desirable LDL: less than 100 mg/dLNear Optimal/Above Optimal LDL: 110- 129 mg/dLBorderline High LDL: 130-159 mg/dLHigh LDL: 160-189 mg/dLVery High LDL: greater than or equal to 190 mg/dL HDL Cholesterol 42 >40 mg/dL [facility] Comment:Desirable HDL: great er than 40 mg/dL Note: This HDL assay may give artificially low results in patients with liver disease. Blood Venous blood specimen / Unknown 09/25/2024 8:56 AM EST 09/25/2024 11:02 AM EST us Noelle Swann PROPERTY ASSISTANT LAB BLOOD ORDERABLES Final Resul t Performing Organization Address City/[facility]/ZIP Co de Phone Number [facility] [address] [place] [address] [phone] * (ABNORMAL) Comprehensive Metabolic Panel (09/25/2024 8:56 AM EST) Sodium 138 135 - 145 mmol/L [facility] Potassium 4.2 3.3 - 5.1 mmol/L [facility] Chloride 104 96 - 108 mmol/L [facility] Carbon Dioxide 26 22 - 29 mmol/L [facility] Anion Gap 12 12 - 20 [facility] Urea Nitrogen (BUN) 22(H) 9 - 16 mg/dL [facility] Creatinine, Serum 1.04 0.5 - 1.4 mg/dL [facility] Estimated Glomerular Filt Rate 54 [facility] Comment:Chronic Kidney Disea se: Estimated GFR < 60 mL/min/1.08q5Ghhnty Kidney Disease: Estimated GFR < 15 mL/min/1.73m2 Glucose 121(H) 60 - 115 mg/dL [facility] Calcium 9.2 8.4 - 10.2 mg/dL [facility] Bilirubin, Total 0.7 0.0 - 1.0 mg/dL [facility] Aspartate Amino Transferase 25 5 - 31 U/L [facility] Alanine Aminotransferase 23 0 - 31 U/L [facility] Total Protein 8.1(H) 6.5 - 8.0 g/dL [facility] Albumin Level 4.4 3.5 - 5.0 g/dL [facility] Alkaline Phosphatase 60 39 - 117 U/L [facility] Blood Venous blood specimen / Unknown 09/25/2024 8:56 AM EST 09/25/2024 11:02 AM EST Noelle Swann PROPERTY ASSISTANT LAB BLOOD ORDERABLES Final Resul t [facility] [address] [place] [phone] [phone] * POCT Glucose (09/14/2024 9:11 AM EST) Glucose Blood, POC 145 60 - 200 mg/dL Comment:lot [id number] Blood Capillary blood specimen / Unknown 09/14/2024 9:11 AM EST us Noelle Swann PROPERTY ASSISTANT POINT OF CARE TEST ENTER/EDIT OR DERABLES Edited Result - Final * (ABNORMAL) POCT HGB A1C (09/13/2024 11:38 AM EST) Hemoglobin A1C 6.9(A) 4.0 - 6.0 % QC Media Lot # [id number] Lot# Expiration Date [id number] Blood 09/13/2024 11:3 8 AM EST Noelle Swann PROPERTY ASSISTANT POINT OF CARE TEST ENTER/EDIT OR DERABLES Final Result * (ABNORMAL) Albumin, Random Urine W/Creatinine (01/05/2024 1:20 PM EDT) Creatinine, Urine 99.58 mg/dL [facility] Microalbumin Urine 31.0 mg/L [facility] Microalbum Creatinine Ratio Ur 31.1(H) <30 ug/mg cr [facility] Comment:Albumin/Creatinine R atio Reference Ranges: Normal: < 30 ug/mg creatinine Microalbuminuria: 30 - 300 ug/mg creatinineClinical Albuminuria: > 300 ug/mg creatinine Urine (Urine, Random) 01/05/2024 1:20 PM EDT 01/05/2024 4:00 PM EDT Caridad Sheffield TRAINING GENERALIST LAB URINE ORDERABLES Final Resu lt [facility] [address] [place] [phone] * HPV mRNA E6/E7 w/Reflex to HPV Genotypes 16, 18/45 (12/07/2023 4:17 PM EDT) HPV nRNA E6/E7 Not Detected Not Detected [facility] Comment:Methodology: Transcr iption-Mediated AmplificationThis assay detects E6/E7 viral messenger RNA (mRNA) from 14high-risk HPV types (16,18,31,33,35,39,45,51,52,56,58,59,66,68).Cervical sources are required for HPV testing.If a vaginal source from a patient who has had atotal hysterectomy with removal of cervix wassubmitted, please contact the testing laboratoryfor alternative testing options.For additional information, please refer [email or web address]/[email or web address](This link if provided for information/educational purposes only.)THIS TEST WAS PERFORMED AT:[facility] [place] [phone] GONZALEZ MD HPV mRNA E6/E7 [facility] HPV 16 RNA TNP [facility] HPV 18/45 RNA [facility] 12/07/2023 4:17 PM EDT 12/09/2023 9:00 AM EDT us Caridad Sheffield [facility] CYTOLOGY ORDERABLES Final R esult [facility] [address] [place] [phone] * Pap Smear (12/07/2023 4:17 PM EDT) 12/07/2023 4:17 PM EDT 12/09/2023 9:00 AM EDT Narrative [facility] - 12/23/2023 6:53 AM EDT ----- ------- Name: Esmer Landin ? Age/Sex: 58/F ? : 1965 Unit#: [id number] ?? Attend Dr: Caridad Sheffield PROPERTY ASSISTANT ?Re12/07/23 ?Status: DEP REF ? Location: [facility] [address] ? Disch: ? ----- ------- SPEC : [id number] ? RECD: 12/09/23 ? STATUS: ??SOUT ? REQ NUM: [id number] ? DARINEL: 12/07/23 ? SUBM DR: Caridad Sheffield PROPERTY ASSISTANT ? ENTERED: ??12/09/23 ?SP TYPE: Pap Smr ?OTHR DR: ? ORDERED: ??Pap Smear ? Interpretation ?? Satisfactory for evaluation. ?? Negative for intraepithelial lesion or malignancy. ?HPV mRNA E6/E7: ?NOT DETECTED ? This assay detects E6/E7 viral messenger RNA (mRNA) from 14 high-risk HPV types (16, 18, ?? 31, 33, 35, 39, 45, 51, 52, 56, 58, 59, 66, 68) ?? HPV testing performed by [facility], [place], [place]. ??See reference laboratory ?? portion of the EMR for entire report. ?Clinical Information LMP: Unknown date Previous PAP test: Unknown date/findings ? Material Received ?? ThinPrep-Cervical ----- ------- Signed (signature on file) TIFFANY Iglesias (ASCP) 12/23/23 0653 ? ----- ------- ? END OF REPORT ? us Caridad Sheffield TRAINING GENERALIST LAB CYTOLOGY ORDERABLES Final R esult [facility] [address] [place] [phone] * BI Mammogram Screening Tomosynthesis Bilateral (10/19/2023 9:25 AM EST) Anatomical Region Laterality Modality Breast Bilateral Mammography 10/19/2023 9:25 AM EST Narrative 11/01/2023 5:54 AM EST ? [facility] ? [address] ?[place] [address] ? Mammography Report ? Signed ? Patient: Landin,Glysette ?MR#: [id number] ?? [id number] ? : 1965 ?Acct:[id number] ? Age/Sex: 58 / F ?ADM Date: 10/19/23 ? Loc: HO.MAMMO ? Attending Dr: Caridad Sheffield PROPERTY ASSISTANT ? Ordering Physician: Caridad Sheffield PROPERTY ASSISTANT ?Results: 1Negativ ?? e ? Date of Service: 10/19/23 ?Follow Up: 1 Year From Orig ?? inal Mammogram ? Procedure(s): MM tomosynthesis screening BI ?? Accession Number(s): [id number] ? cc: Caridad Sheffield PROPERTY ASSISTANT ? EXAMINATION: ?? MM SCREENING DIGITAL BREAST TOMOSYNTHESIS, BILATERAL ? CLINICAL INFORMATION: ? Screening. Asymptomatic. ? COMPARISON: ?? Mammography: There are no prior mammograms for comparison for at least ?? the last 14 years. This study will function as a new baseline ?? examination. ? TECHNIQUE: ?? Digital breast tomosynthesis is performed in both the craniocaudal and ?? mediolateral oblique views along with computer-aided detection (CAD). ?? Synthesized 2D images are generated from the tomosynthesis. ? FINDINGS: ?? The breasts are almost entirely fatty (ACR BI-RADS breast composition ?? Category a). ? There are no significant masses, abnormal calcifications, or other ?? abnormalities. ? MM/MM tomosynthesis screening BI ?? IMPRESSION: ?? No mammographic evidence of malignancy. ? ASSESSMENT: ? BI-RADS BI-RADS 1 - Negative ? RECOMMENDATION: ?? Routine annual mammography screening. ? 1 year F/U ? This examination should not preclude the clinical evaluation of a ?? suspicious palpable abnormality. ? This patient's information was entered into a reminder system with a ?? target due date for their next mammogram. ? Dictated By: ?Ana Luisa Coleman MD ? Signed By: ?<Electronically signed by Ana Luisa Coleman MD in OV> ? 11/01/23 0550 ? DD/ 0925 ? TD/TT: ? Plastics Supervisor: ? Procedure Note Greg, Annie - 11/01/2023 [facility] [address] [place] [place] [address] Mammography Report Signed Patient: Kristyn Landin#: [id number] : 1965Acct:[id number] Age/Sex: 58 / FADM Date: 10/19/23 Loc: HO.MAMMO Attending Dr: Caridad Sheffield NP Ordering Physician: Caridad Sheffield NPResults: 1Negativ e Date of Service: 10/19/23Follow Up: 1 Year From Orig inal Mammogram Procedure(s): MM tomosynthesis screening BI Accession Number(s): [id number] cc: Caridad Sheffield NP EXAMINATION: MM SCREENING DIGITAL BREAST TOMOSYNTHESIS, BILATERAL CLINICAL INFORMATION: Screening. Asymptomatic. COMPARISON: Mammography: There are no prior mammograms for comparison for at least the last 14 years. This study will function as a new baseline examination. TECHNIQUE: Digital breast tomosynthesis is performed in both the craniocaudal and mediolateral oblique views along with computer-aided detection (CAD). Synthesized 2D images are generated from the tomosynthesis. FINDINGS: The breasts are almost entirely fatty (ACR BI-RADS breast composition Category a). There are no significant masses, abnormal calcifications, or other abnormalities. MM/MM tomosynthesis screening BI IMPRESSION: No mammographic evidence of malignancy. ASSESSMENT: BI-RADS BI-RADS 1 - Negative RECOMMENDATION: Routine annual mammography screening. 1 year F/U This examination should not preclude the clinical evaluation of a suspicious palpable abnormality. This patient's information was entered into a reminder system with a target due date for their next mammogram. Dictated By: Ana Luisa Coleman MD Signed By: <Electronically signed by Ana Luisa Coleman MD in OV> 11/01/23 0550 DD/ 4 TD/TT: Plastics Supervisor: Caridad Sheffield [facility] IMG BI PROCEDURES Edited Result - Final * Hepatitis C Antibody with Reflex to HCV, RNA, Quantitative, Real-Time PCR (09/02/2023 10:09 AM EST) Hepatitis C Antibody Nonreactive Nonreactive [facility] Comment:Antibodies to HCV no t detected; does not exclude early acuteHCV infection. Blood Venous blood specimen / Unknown 09/02/2023 10:09 AM EST 09/02/2023 12:23 PM EST Caridad Sheffield [facility] LAB BLOOD ORDERABLES Final Resu lt [facility] [address] [place] [address] [phone] from Last 3 Months or Most Recently Relevant to Health Maintenance Insurance [facility] C3 HSN FULL Care Teams Software Implementation Specialist Relationship Specialty Start Date End Date Noelle Swann NP [address] [place] [address] PCP - General Family Medicine 05/29/24 Ata Patino, TrudyD [address] [place] [address] Pharmacist Internal Medicine 06/17/24
--- OUTSIDE RECORDS SUMMARY | 2024-10-24 09:30 | XMS_ITS | Encounter Summary ---
Author Organization [employer] Address [address] [facility] [address] [place] [address] Care Team Providers Care Underwriter Solicitation Director Name Role Phone DharmeshNoelle chirinos MICHELL Primary Care Provider [phone] Ata Patino PharmD Unavailable [phone] Reason for Visit * Reason Onset Date Comments recall 10/04/2024 Encounter Details Date Type Department Care Team ([facility] st Contact Info) Description 10/04/2024 Telephone [facility] [address] [place], [place] [phone] Sommer Dent MA recall Social History Tobacco Use Types Packs/Day Years [...] with others, in a hotel, in a fpc, living outside on the street, on a [...] encounter Miscellaneous Notes * Telephone Encounter - Sommer Dent MA - 10/04/2024 2:55 PM EST T/C- Threshing Operator Left Voice Mail to return call to schedule an appointment. Recall letter sent. Appointment: Office Visit Note: chronic disease managemeent Month: November With: Chantal documented in this encounter Plan of Treatment Upcoming Encounters Date Type Department Care Team (Late st Contact Info) Description 11/19/2024 1:00 PM EST Medication Management [facility] [address] [place] [address] Ata Patino, PharmD [address] [place] [address] documented as of this encounter Goals Goal [...] documented as of this encounter Care Teams Underwriter Solicitation Director Relationship Specialty Start Date End Date Noelle Swann NP [address] [place] [address] PCP - General Family Medicine 05/29/24 Ata Patino, TrudyD [address] [place] [address] Pharmacist Internal Medicine 06/17/24 documented as of this encounter
--- OUTSIDE RECORDS SUMMARY | 2024-10-24 09:30 | XMS_ITS | Encounter Summary ---
Author Organization [employer] Address [address] [facility] [address] [place] [address] Care Team Providers Care Tutoring Clinician Name Role Phone Noelle Swann MICHLEL Primary Care Provider [phone] Ata Patino PharmD Unavailable Reason for Visit * Reason Comments Med Refill Encounter Details Date Type Department Care Team ([facility] st Contact Info) Description 09/28/2024 Refill [facility] [address] [place] [address] Ata Patino, PharmD [address] [place], [place] [phone] Diabetes mellitus, new onset (CMS/HCC) Social History [...] with others, in a hotel, in a care home, living outside on the street, on a [...] encounter Miscellaneous Notes * Telephone Encounter - Ata Patino PharmD - 09/28/2024 4:13 PM EST Pharmacist will renew prescription for Trulicity 1.5 mg subcutaneously once weekly. Pharmacy [facility] attempted to contact the patient for [facility] FU. [facility]ega plan to schedule patient with [facility] pharmacist in thenext 4-6 weeks. documented in this encounter Plan of Treatment Upcoming Encounters Date Type Department Care Team (Late st Contact Info) Description 11/19/2024 1:00 PM EST Medication Management [facility] [address] [place] [address] Ata Patino, Ayah [address] [place] [address] documented as of this encounter Goals Goal Patient Goal Type Associated Problems Recent Progress Patient-Stated? Author Blood Pressure < 140/90 Blood Pressure 118/62(2023 9:04 AM EST) No Jg Olivia Hemoglobin A1c < 7 Result Component 6.9( 11:38 AM EST) No Jg Olivia documented as of this encounter Visit Diagnoses Diagnosis Diabetes mellitus, new onset (CMS/HCC) documented in this encounter Additional Health Concerns Assessment Noted Time PHQ-9 Depression Total Score: 3 12/07/19 24 4:23 PM EDT documented as of this encounter Care Teams Tutoring Clinician Relationship Specialty Start Date End Date Noelle Swann NP [address] [place] [address] PCP - General Family Medicine 05/29/24 Ata Patino PharmD [address] [place] [address] Pharmacist Internal Medicine 06/17/24 documented as of this encounter
== END 2024-10-24 08:46 | disposition home or self-care (01) ==
LOC: HO.MAMMO 08:45
PROVIDERS: PCP Nurse Practitioner Family; Visit Provider Nurse Practitioner Family
DX: Z12.31 Encounter for screening mammogram for malignant neoplasm of breast (principal)
CPT/HCPCS: 77063; 77067

== ENCOUNTER → 2024-10-24 09:00 | Outpatient (BNV) | payer MEDICAID, SELFPAY | PROVIDERS: PCP Nurse Practitioner Family; Visit Provider Internal Medicine | DX: Z12.31 Encounter for screening mammogram for malignant neoplasm of breast (principal) | CPT/HCPCS: 77063; 77067 ==

== ENCOUNTER 2025-05-09 09:40 | Outpatient (REF) | payer MEDICAID, SELFPAY ==
--- NOTE | ~2025-05-09 | XR_ITS ---
XR KNEE 4 VIEWS BILATERAL Reason: Chronic bilateral knee Comparison: Radiographs of the right knee on May 13, 2018 FINDINGS: Right: Normal alignment. Mild narrowing of the medial femorotibial joint space. Tricompartmental marginal osteophytes. No fracture. No suprapatellar joint effusion. Degenerative changes have minimally progressed from 2018. Left: Normal alignment. Mild narrowing of the medial femorotibial joint space. Tricompartmental marginal osteophytes. No fracture. Small suprapatellar joint effusion. XR/XR Knee Sp 4V IMPRESSION: Right: Jdaa-ag-rsattsfw tricompartmental degenerative changes, minimally progressed from 2018. Left: Mezd-[id number]-glzqrqht tricompartmental degenerative changes. Electronically signed by: Ellis Hernandez MD 05/09/2025 12:08 PM EDT
--- OUTSIDE RECORDS SUMMARY | 2025-05-09 10:20 | XMS_ITS | Encounter Summary ---
Author Organization [employer] Address [address] [facility] [address] [place] [address] Care Team Providers Care [employer] Reading Teacher Name Role Phone Caridad Sheffield Primary Care Provider [phone] Noelle Swann NP Primary Care Provider [phone] Ata Patino PharmD Unavailable [phone] Rasheed, Pierre HERRERA Primary Care Provider [phone] Encounter Details Date Type Department Care Team (Late st Contact Info) Description 10/26/2023 Orders Only [facility] [address] [place] [address] Caridad Sheffield FNP [address] [place], [place] [phone] Mixed hyperlipidemia (Primary Dx); Diabetes mellitus, new [...] as of this encounter Plan of Treatment Not on file documented as of this encounter Goals Goal Patient Goal Type Associated Problems Recent Progress Patient-Stated? Author Blood Pressure < 140/90 Blood Pressure 124/68(2024 10:06 AM EDT) Jg Ash Hemoglobin A1c < 7 Result Component 7(02/25/2025 1:26 PM EDT) No Jg Olivia documented as of this encounter Procedures Procedure Name Priority Date/Time Associated Diagnosis Comments VITAMIN B12/FOLATE, SERUM PANEL Routine 09/25/2024 8:56 AM EST Diabetes mellitus, new onset (CMS/HCC) documented in this encounter Results * Vitamin B12/Folate, Serum Panel (09/25/2024 8:56 AM EST) Vitamin B12 255 200 - 900 pg/mL [facility] Comment:NORMAL 200-900 PG/ML INDETERMINATE 160-199 PG/ML DEFICIENT < 160 PG/ML Folate 8.6 > or = 4.0 ng/mL [facility] Comment:Reference Values:> o r = 4.0 ng/mL< 4.0 ng/mL suggests folate deficiency Methotrexate, aminopterin and folinic acid(leucovorin) are chemotherapeutic agents whose molecularstructures are similar to folate; therefore, the Architectfolate assay cannot be used for patients using these drugs. 09/25/2024 8:56 AM EST 09/25/2024 11:02 AM EST us Caridad LEE LAB BLOOD ORDERABLES Final Resu lt [facility] [address] [place] [phone] documented in this encounter Visit Diagnoses Diagnosis Mixed hyperlipidemia- Primary Diabetes mellitus, new onset (CMS/HCC) documented in this encounter Care Teams Middle [employer] Reading Teacher Relationship Specialty Start Date End Date Caridad Sheffield FNP [address] [place] [address] PCP - General Family Medicine 09/02/23 05/28/24 Noelle Swann NP [address] [place] [address] PCP - General Family Medicine 05/29/24 02/11/25 NamePierre MD [address] [place] [address] PCP - General Internal Medicine 02/12/25 Ata Patino, TrudyD [address] [place] [phone] Pharmacist Internal Medicine 06/17/24 documented as of this encounter
[2025-05-09 11:49] LABS: Anion Gap 12 (12-20); Blood Urea Nitrogen 21 mg/dL (9-16); Calcium 9.6 mg/dL (8.4-10.2); Carbon Dioxide 26 mmol/L (22-29); Chloride 103 mmol/L (96-108); Estimated Glomerular Filt Rate 58; Potassium 4.0 mmol/L (3.3-5.1); Sodium 137 mmol/L (135-145)
[2025-05-09 12:15] LABS: Microalbum/Creatinine Ratio Ur 11.9 ug/mg cr (<30)
[2025-05-09 12:43] LABS: Vitamin B12 254 pg/mL (200-900)
== END 2025-05-09 09:41 | disposition home or self-care (01) ==
LOC: HO.HHCL 09:40
PROVIDERS: Nurse Practitioner Family; PCP Internal Medicine Geriatric Medicine; Visit Provider Internal Medicine Geriatric Medicine
DX: E11.9 Type 2 diabetes mellitus without complications (principal); I10 Essential (primary) hypertension; R79.89 Other specified abnormal findings of blood chemistry; M25.562 Pain in left knee; M25.561 Pain in right knee; G89.29 Other chronic pain; Z79.4 Long term (current) use of insulin
CPT/HCPCS: 36415; 73564; 80048; 82043; 82570; 82607

== ENCOUNTER → 2025-05-09 09:51 | Outpatient (BNV) | payer MEDICAID, SELFPAY | PROVIDERS: PCP Internal Medicine Geriatric Medicine; Visit Provider Radiology Body Imaging | DX: M17.0 Bilateral primary osteoarthritis of knee (principal) | CPT/HCPCS: 73564 ==